=== PATIENT | female | born 1980 | race Caucasian/White ===

== ENCOUNTER 2020-11-02 06:10 | Day surgery (SDC) | payer BC, SELFPAY ==
[~2020-11-02] VITALS: Ht 157.5 cm; Wt 46.3 kg
[2020-11-02 06:44] LABS: HCG,QUAL RESULT NEGATIVE (NEGATIVE)
[2020-11-02] MEDS ORDERED: MEPERIDINE HCL/PF 25 MG/ML DISP.SYRIN IVP PRN (08:15)
[2020-11-02] MEDS ORDERED: MIDAZOLAM HCL 5 MG/5 ML VIAL IVP PRN (08:15)
[2020-11-02] MEDS ORDERED: HYDROmorphone 1 MG/ML INJ. CARTRIDGE IVP PRN (08:15)
[2020-11-02] MEDS ORDERED: NALOXONE HCL 0.4 MG/ML AMP (NARCAN) IVP PRN (08:15)
[2020-11-02] MEDS ORDERED: LR 1,000 ML IV SCH (08:15)
[2020-11-02] MEDS ORDERED: ePHEDrine sulfate 50 MG/ML VIAL IVP PRN (08:15)
[2020-11-02] MEDS ORDERED: ACETAMINOPHEN/CODEINE 300 MG-30 MG TABLET PO PRN (08:30)
[2020-11-02 10:21] VITALS: BP_SYST 120
== END 2020-11-02 09:55 | disposition home or self-care (01) ==
LOC: SMU 06:10 → SDS 06:10
PROVIDERS: ATTEND Otolaryngology Plastic Surgery within the Head & Neck
DX: H69.81 Other specified disorders of Eustachian tube, right ear (principal); K21.9 Gastro-esophageal reflux disease without esophagitis; Z79.899 Other long term (current) drug therapy
CPT/HCPCS: 36415; 69705; 84703; 87426; C1726